=== PATIENT | female | born 1935 ===

== ENCOUNTER 2023-12-02 07:12 | Day surgery (SDC) | payer OTHER ==
[~2023-12-02] VITALS: Ht 149.9 cm; Wt 61.7 kg
[~2023-12-02 07:12] MED LIST: CEFAZOLIN SOD 1 GM in D5W 50 ML IV ONE; CEFAZOLIN SOD 2 GM in D5W 50 ML IV ONE
[2023-12-02 08:47] VITALS: O2SAT 99
[2023-12-02] MEDS ORDERED: ACETAMINOPHEN I.V. 1000 MG 100 ML IV ONE (09:45)
[2023-12-02] MEDS ORDERED: ONDANSETRON HCL 4 MG/2 ML VIAL ONE (11:50)
[2023-12-02] MEDS ORDERED: fentaNYL CITRATE/PF 100 MCG/2 ML AMP ONE (11:50)
[2023-12-02] MEDS ORDERED: PROPOFOL 200MG/ 20ML VIAL (DIPRIVAN) IV ONE (11:50)
[2023-12-02] MEDS ORDERED: LR 1,000 ML IV.SOLN IV ONE (11:50)
[2023-12-02] MEDS ORDERED: ISOSULFAN BLUE 5 ML VIAL (LYMPHAZURIN) ONE (11:50)
[2023-12-02] MEDS ORDERED: KETOROLAC TROMETHAMINE 30 MG VIAL ONE (11:50)
[2023-12-02] MEDS ORDERED: DEXAMETHASONE SOD PHOSPHATE 4 MG/ML VIAL ONE (11:50)
[2023-12-02] MEDS ORDERED: MIDAZOLAM HCL 5 MG/5 ML VIAL ONE (11:50)
[2023-12-02] MEDS ORDERED: BUPIVACAINE /PF 0.25% 30 ML VIAL INJ ONE (11:50)
[2023-12-02] MEDS ORDERED: SEVOFLURANE 15 MIN GAS INH ONE (11:50)
[2023-12-02] MEDS ORDERED: METOCLOPRAMIDE HCL 10 MG/2 ML VIAL IVP PRN (12:45)
[2023-12-02] MEDS ORDERED: hydrALAZINE HCL 20 MG/ML VIAL IVP PRN (12:45)
[2023-12-02] MEDS ORDERED: MEPERIDINE HCL/PF 25 MG/ML DISP.SYRIN IVP PRN (12:45)
[2023-12-02] MEDS ORDERED: LR 1,000 ML IV SCH (12:45)
[2023-12-02] MEDS ORDERED: HYDROmorphone 1 MG/ML INJ. CARTRIDGE IVP PRN ×2 (12:45)
[2023-12-02] MEDS ORDERED: D5/0.45 NS 1,000 ML IV SCH (13:30)
[2023-12-02] MEDS ORDERED: HYDROcodone/ACETAMIN 5-325 MG TAB (NORCO/ VICODIN) PO PRN (13:30)
[2023-12-02 16:20] VITALS: BP_SYST 155; PULSE 54; RESP 20
== END 2023-12-02 15:26 | disposition home or self-care (01) ==
LOC: SMU 07:12 → SDS 07:12
PROVIDERS: ATTEND Colon & Rectal Surgery
DX: C50.912 Malignant neoplasm of unspecified site of left female breast (principal); N64.89 Other specified disorders of breast; I12.9 Hypertensive chronic kidney disease with stage 1 through stage 4 chronic kidney disease, or unspecified chronic kidney disease; E11.22 Type 2 diabetes mellitus with diabetic chronic kidney disease; N18.4 Chronic kidney disease, stage 4 (severe); E11.51 Type 2 diabetes mellitus with diabetic peripheral angiopathy without gangrene; F33.1 Major depressive disorder, recurrent, moderate; E66.9 Obesity, unspecified; E78.00 Pure hypercholesterolemia, unspecified; Z68.27 Body mass index [BMI] 27.0-27.9, adult; Z90.710 Acquired absence of both cervix and uterus; Z90.49 Acquired absence of other specified parts of digestive tract; Z87.891 Personal history of nicotine dependence; Z79.899 Other long term (current) drug therapy; Z80.1 Family history of malignant neoplasm of trachea, bronchus and lung; Z82.3 Family history of stroke
CPT/HCPCS: 87081; 38525; 19301; 38900; 78195; 82948; 88305; 88307; 88342; A9541; J3490; J0690; J1100; J1885; J2250; J2405; J2704; J3010; Q9968; J7060; J7120; J0131